=== PATIENT | female | born 1990 | race African-American/Black ===

== ENCOUNTER 2016-12-04 07:41 | Emergency (ER) | payer OTHER ==
[2016-12-04 07:47] VITALS: BP 112/68
--- NOTE | 2016-12-04 08:06 | PROVIDER DOCUMENTATION ---
HPI-Respiratory General - General Chief Complaint: Sore Throat Stated Complaint: FLU SX Time Seen by Provider: 12/04/16 07:44 Source: patient Allergies/Adverse Reactions: Patient Allergies Allergy/AdvReac Type Severity Reaction Status Date / Time No Known Allergies Allergy Verified 05/15/16 09:23 Home Medications: Home Medication List Medication Instructions Recorded Confirmed Last Taken Type Amoxicillin 500 mg PO TID #21 capsule 05/15/16 Unknown Rx Hydrocodone/Acetaminophen [[place] 1 each PO Q4-6H PRN PRN #10 tablet 05/15/16 Unknown Rx 5-325 Tablet] Methocarbamol [Robaxin-750] 1,500 mg PO Q6-8H PRN PRN #40 05/15/16 Unknown Rx tablet Acetaminophen with Codeine 1 each PO Q8H PRN PRN #10 tablet 12/04/16 Unknown Rx [Tylenol with Codeine #3] Azithromycin [Zithromax Z-Sagar] 250 mg PO DIRECTED #1 pkg 12/04/16 Unknown Rx - History of Present Illness-Resp Nature of Presenting Problem: Reports sore throat, cough, fever, congestion, ear ache, body ache and mild dysuria since 3 days ago. Denies preg/DMII. Quality of Pain: reports: none Severity in ED: reports: moderate, severe Onset/Duration: reports: 3 days ago Timing: reports: still present Exposure: reports: unknown cause Cough Quality/Degree: reports: moderate Episode Frequency: no prior episodes Current Respiratory Medication Therapy: Initiated none Modifying Factors: improves with: nothing Associated Symptoms: reports: cough, earache, fever/chills, flu-like symptoms, headache, muscle/bodyaches, nasal congestion, sore throat Similar Symptoms Previously?: No Recently seen or treated by another doctor?: No Review of Systems - Adult - REVIEW OF SYSTEMS - ADULT Constitutional: reports: see HPI, fever, fatique Eyes: reports: no symptoms reported Ears, Nose, Mouth & Throat: reports: see HPI, ear pain, hoarseness, throat pain . denies: ear discharge, sinus problem, throat swelling Cardiovascular: reports: see HPI. denies: chest pain, heart murmur Respiratory: reports: see HPI, cough. denies: shortness of breath, wheezing Gastrointestinal: reports: no symptoms reported Musculoskeletal: reports: no symptoms reported Integumentary: reports: no symptoms reported Neurological: reports: no symptoms reported Psychiatric: reports: no symptoms reported All Other Systems: Reviewed and Negative Past History - Adult - PAST MEDICAL HISTORY-ADULT Review of Records: reports: Old Records Reviewed, Nursing Assessment Review, Medications Reviewed, Social history reviewed & non-contributory. Major Childhood Illnesses: reports: denies history Cardiovascular: reports: denies history Respiratory: reports: denies history Gastrointestinal: reports: denies history Genitourinary: reports: denies history Musculoskeletal: reports: denies history Neurological: reports: denies history Psychiatric: reports: denies history Endocrine/Immune: reports: denies history Other Conditions: reports: denies history - PRIOR SURGERIES/PROCEDURES Surgical/Procedure History: reports: reviewed, not pertinent - IMMUNIZATION STATUS Childhood Immunizations: See Nurse Assessment Flu Vaccine: See Nurse Assessment - FAMILY HISTORY Family History: reviewed, not pertinent Physical Exam-General - PHYSICAL EXAM-ADULT Initial Vital Signs Reviewed: Yes - CONSTITUTIONAL General Appearance: appears well, alert, no apparent distress - EYES Eyes: PERRL/EOMI, pink conjunctivae - HEAD, EARS, NOSE, MOUTH & THROAT HENMT: pharyngeal erythema, TM abnormal (Cloudy with mild erythema) - NECK Neck: non-tender, full range of motion, supple - RESPIRATORY Respiratory: chest non-tender, lungs clear, normal breath sounds, no pleuratic chest pain, no respiratory distress, no accessory muscle use - CARDIOVASCULAR Cardiovascular: normal peripheral pulses, regular rate, rhythm, no edema, no gallop, no JVD, no murmur - GASTROINTESTINAL (ABDOMEN) Abdominal Exam: normal bowel sounds, non tender, soft, no organomegaly - MUSCULOSKELETAL Extremity: normal range of motion, non-tender, normal gait - SKIN Integumentary: normal color, normal turgor, warm/dry Progress - PLAN OF CARE/RESULTS Progress/Plan/Lab Results: Laboratory Results - last 24 hr 12/04/16 12/04/16 12/04/16 07:50 07:51 08:02 Urine Source Urine Color Urine Clarity Urine pH Ur Specific [place] Urine Protein Urine Ketones Urine Blood Urine Nitrite Urine Bilirubin Urine Urobilinogen Urine Microscopic RBC Urine WBC Urine Microscopic WBC Ur Epithelial Cells Urine Bacteria Urine Glucose Urine Test NEGATIVE Influenza A (Rapid) NEGATIVE Influenza B (Rapid) NEGATIVE Group A Strep Rapid NEGATIVE 12/04/16 08:02 Urine Source CLEAN CATCH Urine Color YELLOW Urine Clarity CLEAR Urine pH 7.0 Ur Specific [place] 1.015 Urine Protein NEGATIVE Urine Ketones NEGATIVE Urine Blood NEGATIVE Urine Nitrite NEGATIVE Urine Bilirubin NEGATIVE Urine Urobilinogen NORMAL Urine Microscopic RBC <10 Urine WBC NEGATIVE Urine Microscopic WBC <10 Ur Epithelial Cells >10 A Urine Bacteria 1+ Urine Glucose NEGATIVE Urine Test Influenza A (Rapid) Influenza B (Rapid) Group A Strep Rapid Orders Category Date Time Status DIRECT STREP PL Stat Lab 12/04/16 07:[address] Stat Lab 12/04/16 07:51 Completed TEST-URINE [PREG] Stat Lab 12/04/16 08:[address] W/POSS RFLX CULT [URINALYSIS] Stat Lab 12/04/16 08:02 Completed Acetaminophen [Tylenol] Med 12/04/16 08:09 Discontinued 1,000 mg .ROUTE .STK-MED ONE Acetaminophen [Tylenol] Med 12/04/16 08:07 Discontinued 1,000 mg PO NOW ONE Vital Signs Temp Pulse Resp BP Pulse Ox 12/04/16 07:45 99.7 F H 110 H 18 112/68 99 No Known Allergies Allergy (Verified 05/15/16 09:23) Amoxicillin 500 mg PO TID #21 capsule 05/15/16 Hydrocodone/Acetaminophen [[place] 5-325 Tablet] 1 each PO Q4-6H PRN PRN #10 tablet 05/15/16 Methocarbamol [Robaxin-750] 1,500 mg PO Q6-8H PRN PRN #40 tablet 05/15/16 Laboratory 12/04/16 12/04/16 12/04/16 08:02 08:02 07:51 Urine Source CLEAN CATCH Urine Color YELLOW Urine Clarity CLEAR Urine pH 7.0 Ur Specific [place] 1.015 Urine Protein NEGATIVE Urine Ketones NEGATIVE Urine Blood NEGATIVE Urine Nitrite NEGATIVE Urine Bilirubin NEGATIVE Urine Urobilinogen NORMAL Urine Microscopic RBC <10 Urine WBC NEGATIVE Urine Microscopic WBC <10 Ur Epithelial Cells >10 A Urine Bacteria 1+ Urine Glucose NEGATIVE Urine Test NEGATIVE Influenza A (Rapid) NEGATIVE Influenza B (Rapid) NEGATIVE Group A Strep Rapid 12/04/16 07:50 Urine Source Urine Color Urine Clarity Urine pH Ur Specific [place] Urine Protein Urine Ketones Urine Blood Urine Nitrite Urine Bilirubin Urine Urobilinogen Urine Microscopic RBC Urine WBC Urine Microscopic WBC Ur Epithelial Cells Urine Bacteria Urine Glucose Urine Test Influenza A (Rapid) Influenza B (Rapid) Group A Strep Rapid NEGATIVE Departure - Departure Time of Disposition Order: 09:01 DIAGNOSIS: Viral syndrome URI (upper respiratory infection) Qualifiers: URI type: unspecified URI Qualified Code(s): J06.9 - Acute upper respiratory infection, unspecified Disposition: HOME 01 Certified Medical Emergency: Emergent Condition: Stable Prescriptions: Acetaminophen with Codeine [Tylenol with Codeine #3] 1 each PO Q8H PRN PRN #10 tablet PRN Reason: Cough Azithromycin [Zithromax Z-Sagar] 250 mg PO DIRECTED #1 pkg
[2016-12-04] MEDS ORDERED: TYLENOL PO ONE (08:07)
[2016-12-04] MEDS ORDERED: TYLENOL ONE (08:09)
[2016-12-04 08:13] LABS: URINE CULTURE PL NEEDED? NO; URINE SOURCE CLEAN CATCH
[2016-12-04 08:30] LABS: BILIRUBIN URINE NEGATIVE (NEGATIVE); BLOOD URINE NEGATIVE (NEGATIVE); CLARITY CLEAR (CLEAR); COLOR YELLOW; GLUCOSE URINE NEGATIVE (NEGATIVE); LEUKOCYTES URINE NEGATIVE (NEGATIVE); NITRITE URINE NEGATIVE (NEGATIVE); PROTEIN URINE NEGATIVE (NEGATIVE); SP GRAVITY URINE 1.015; UROBILINOGEN URINE NORMAL
[2016-12-04 08:31] LABS: URINE EPITHELIAL CELLS >10 /HPF (<10); URINE RBC <10 /HPF (<10); URINE WBC <10 /HPF (<10)
== END 2016-12-04 09:16 | disposition home or self-care (01) ==
LOC: P.ED 07:41
DX: J06.9 Acute upper respiratory infection, unspecified (principal); B34.9 Viral infection, unspecified; J02.9 Acute pharyngitis, unspecified; H92.09 Otalgia, unspecified ear; R05 Cough; R50.9 Fever, unspecified; R51 Headache; M79.1 Myalgia; R09.81 Nasal congestion; R53.83 Other fatigue; R49.0 Dysphonia; Z79.899 Other long term (current) drug therapy
CPT/HCPCS: 81001; 81025; 87081; 87430; 87804